=== PATIENT | female | born 1985 | race Caucasian/White ===

== ENCOUNTER 2017-04-06 10:42 | Emergency (ER) | payer MEDICAID ==
[2017-04-06] MEDS ORDERED: IBUPROFEN 600 MG TAB PO ONE ×2 (11:11→11:14)
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
--- NOTE | 2017-04-06 11:22 | CPEKG ---
Heart Rate: 63 RR Interval: 952 P-R Interval: 140 QRSD Interval: 86 QT Interval: 424 QTC Interval: 435 P Liberty: 74 QRS Liberty: 68 T Wave Liberty: 53 EKG Severity - NORMAL ECG - EKG Impression: SINUS RHYTHM Electronically Signed By: James Cervantes 06-Apr-2017 15:50:00
[2017-04-06 11:31] LABS: % IMMATURE GRANULYOCYTES 0.4 % (0.0-1.1); ABSOLUTE IMMATURE GRANULOCYTES 0.05 10^3/uL (0.00-0.10); ADD DIFF? NO; ADD MORPH? NO; ADD SCAN? NO; ATYPICAL LYMPHOCYTE FLAG 10 (0-99); FRAGMENT RBC FLAG 0 (0-99); HEMATOCRIT 39.8 % (38.0-47.0); HEMOGLOBIN 13.4 g/dL (12.6-16.3); LEFT SHIFT FLG 0 (0-99); LIPEMIA HEMOLYSIS FLAG 80 (0-99); MEAN CELL HEMOGLOBIN CONCENTR. 33.7 g/dL (32.4-36.7); MEAN CELL VOLUME 92.1 fL (81.5-99.8); MEAN PLATELET VOLUME 9.5 fL (8.7-11.7); PLATELET CLUMPS FLAG 0 (0-99); PLATELET COUNT 349 10^3/uL (150-400); RED BLOOD CELL COUNT 4.32 10^6/uL (4.18-5.33); RED CELL DISTRIBUTION WIDTH 13.2 % (11.5-15.2)
[2017-04-06 11:43] LABS: ANION GAP 11 mEq/L (8-16); CALCIUM 9.2 mg/dL (8.5-10.4); CARBON DIOXIDE 19 mEq/l (22-31); CHLORIDE 108 mEq/L (97-110); GLOMERULAR FILTRATION RATE > 60; GLUCOSE 91 mg/dL (70-100); POTASSIUM 4.1 mEq/L (3.5-5.2); SODIUM 138 mEq/L (134-144)
[2017-04-06 11:58] LABS: TROPONIN I < 0.012 ng/mL (0-0.034)
[2017-04-06 13:24] VITALS: BP 99/60; PULSE 58; RESP 17; TEMP 98.4; O2SAT 96
== END 2017-04-06 13:23 | disposition home or self-care (01) ==
DX: R07.9 Chest pain, unspecified (principal); F17.200 Nicotine dependence, unspecified, uncomplicated

== ENCOUNTER 2017-04-22 11:33 | Emergency (ER) | payer MEDICAID ==
[2017-04-22 11:43] VITALS: RESP 18
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
[2017-04-22] MEDS ORDERED: IBUPROFEN 600 MG TAB PO ONE ×2 (13:05→13:06)
[2017-04-22] MEDS ORDERED: ACETAMINOPHEN 325 MG TAB PO ONE (13:05)
[2017-04-22] MEDS ORDERED: ACETAMINOPHEN 500 MG TAB ONE (13:06)
[2017-04-22] MEDS ORDERED: ACETAMINOPHEN 160 MG/5 ML UDCUP PO ONE (13:08)
[2017-04-22] MEDS ORDERED: IBUPROFEN SUSP 100 MG/5 ML UDCUP PO ONE (13:09)
[2017-04-22 13:17] VITALS: BP 117/75; PULSE 81; TEMP 97.9; O2SAT 95
== END 2017-04-22 13:16 | disposition home or self-care (01) ==
DX: S29.9XXA Unspecified injury of thorax, initial encounter (principal); F17.200 Nicotine dependence, unspecified, uncomplicated; W01.0XXA Fall on same level from slipping, tripping and stumbling without subsequent striking against object, initial encounter

== ENCOUNTER 2017-08-21 12:06 | Emergency (ER) | payer MEDICAID ==
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
[2017-08-21] MEDS ORDERED: fentaNYL 100 MCG/2 ML INJ IVP ONE (12:18)
[2017-08-21 12:38] VITALS: RESP 16
[2017-08-21] MEDS ORDERED: KETOROLAC 30 MG/1 ML SDV IVP ONE (13:36)
[2017-08-21] MEDS ORDERED: LET GEL TOPICAL 1 EA SYR TP ONE (13:41)
[2017-08-21] MEDS ORDERED: OXYCODONE/APAP 5/325 TAB PO ONE (14:52)
[2017-08-21 15:56] VITALS: BP 98/62; PULSE 67; TEMP 98.6; O2SAT 98
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
--- NOTE | 2017-08-25 11:23 | ASMTCMCOM ---
CM Note CM Note Notes: Received call from Dr. Azevedo office that patient did not show up for scheduled appointment today. I was able to contact patient on her cell phone who tells me she was not able to make it. I encouraged her to call them JOHN to explain/reschedule. Patient tells me she will call and reschedule appointment Date Signed: 08/25/2017 11:22 AM Electronically Signed By:Magdalena Rodney RN
--- NOTE | 2017-08-25 11:23 | ASMTCMCOM ---
CM Note CM Note Notes: Received call from Dr. Azevedo office that patient did not show up for scheduled appointment today. I was able to contact patient on her cell phone who tells me she was not able to make it. I encouraged her to call them JOHN to explain/reschedule. Patient tells me she will call and reschedule appointment Date Signed: 08/25/2017 11:22 AM Electronically Signed By:Magdalena Rodney RN
--- NOTE | 2017-08-25 11:23 | ASMTCMCOM ---
CM Note CM Note Notes: Received call from Dr. Azevedo office that patient did not show up for scheduled appointment today. I was able to contact patient on her cell phone who tells me she was not able to make it. I encouraged her to call them JOHN to explain/reschedule. Patient tells me she will call and reschedule appointment Date Signed: 08/25/2017 11:22 AM Electronically Signed By:Magdalena Rodney RN
== END 2017-08-21 16:11 | disposition home or self-care (01) ==
LOC: EDUNIT#
DX: S82.141A Displaced bicondylar fracture of right tibia, initial encounter for closed fracture (principal); F17.200 Nicotine dependence, unspecified, uncomplicated; V28.0XXA Motorcycle driver injured in noncollision transport accident in nontraffic accident, initial encounter; Y92.410 Unspecified street and highway as the place of occurrence of the external cause; Y99.8 Other external cause status; Y93.89 Activity, other specified
CPT/HCPCS: 96374; J1885; J3010; L1830

== ENCOUNTER 2017-08-27 06:49 | Emergency (ER) | payer MEDICAID ==
[2017-08-27 06:59] VITALS: TEMP 98.6
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
[2017-08-27] MEDS ORDERED: OXYCODONE/APAP 5/325 TAB PO ONE (07:02)
[2017-08-27 10:03] VITALS: BP 104/60; PULSE 72; RESP 12; O2SAT 97
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
--- NOTE | 2017-09-01 12:22 | ASMTCMCOM ---
CM Note CM Note Notes: ER dock manager received call today from Marina SUMNER at Dr. Azevedo's office regarding this patient who is pending orthopedic surgery. Marina askd CM to arrange rehab post surgery as patient is homeless and will likely need HH VS SNF post op. Marina asks CM to contact Dalila FLORENCE at Dr. Azevedo's office re this request . I have reviewed patient's chart and confirmed that she is covered by Medicaid and left a detailed message with Dalila re the process for SNF referrals, etc. I explained that CM would not be able to "pre arrange" SNF or HH care until after patient has surgery and is evaluated for eligibilty and screened via a ULTC. I have left the ER CM contact information for follow up and further questions, as well as contact information for my internet cafe manager, Zuleika . Zuleika has been informed of the situation. Upon confirming my messsage with Dalila I am now informed by Ana at Dr. Azevedo's office that patient is actually scheduled for surgery at [facility]. If contacted, CM will confirm the process and direct Randolph Azevedo's staff to CM at [facility] Date Signed: 09/01/2017 12:22 PM Electronically Signed By:Magdalena Rodney RN
== END 2017-08-27 10:02 | disposition home or self-care (01) ==
LOC: EDUNIT#
DX: M25.561 Pain in right knee (principal)

== ENCOUNTER → 2017-09-01 | Outpatient (CLI) | payer MEDICAID ==
[2017-09-01 12:52] VITALS: BP 115/77; PULSE 77; RESP 18; TEMP 98.4; O2SAT 97
== END ==
LOC: EDSTATUS 13:50 → FIMAGING 13:51
PROVIDERS: ATTEND Orthopaedic Surgery Sports Medicine
DX: S80.11XA Contusion of right lower leg, initial encounter (principal); V00.148A Other scooter (nonmotorized) accident, initial encounter

== ENCOUNTER 2017-09-04 15:34 | Emergency (ER) | payer MEDICAID ==
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
[2017-09-04 16:01] VITALS: RESP 16; TEMP 98.8
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
[2017-09-04 18:21] VITALS: BP 131/81; PULSE 84; O2SAT 94
== END 2017-09-04 18:20 | disposition home or self-care (01) ==
LOC: EDUNIT# → EEVIPCON 15:34
DX: M79.604 Pain in right leg (principal); F17.200 Nicotine dependence, unspecified, uncomplicated

== ENCOUNTER 2017-09-07 07:54 | Inpatient (IN) | payer MEDICAID ==
[~2017-09-07 07:54] MED LIST: ROPIVACAINE 0.2% 80 MG, EPINEPHrine 0.2 MG, KETOROLAC TROMETHAMINE 30 MG, morphINE 10 M... IU ONE; ceFAZolin 2 GM/SWFI 2 GM/20 ML SYR IVP ONE
[2017-09-07] MEDS ORDERED: BUPIVACAINE 0.5% 30 ML SDV ONE ×2 (08:00→10:14)
[2017-09-07] MEDS ORDERED: LR 1,000 ML IV ONE (08:52)
[2017-09-07] MEDS ORDERED: LIDOCAINE 1% 2 ML INJ ID PRN (08:52)
[2017-09-07] MEDS ORDERED: MIDAZOLAM 2 MG/2 ML VIAL IVP ONE (09:40)
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
--- NOTE | 2017-09-07 09:45 | PDHPUP ---
History & Physical Update H&P update statement: This history and physical update is based on an assessment of the patient which was completed after admission or registration (within 24 hours), but prior to the surgery/procedure.
[2017-09-07] MEDS ORDERED: PROPOFOL 200 MG/20 ML VIAL ONE ×2 (09:52)
[2017-09-07] MEDS ORDERED: fentaNYL 100 MCG/2 ML INJ ONE ×4 (09:52→12:24)
[2017-09-07] MEDS ORDERED: MIDAZOLAM 2 MG/2 ML VIAL ONE (09:59)
[2017-09-07] MEDS ORDERED: ceFAZolin 2 GM/SWFI 2 GM/20 ML SYR IVP ONE (10:00)
[2017-09-07] MEDS ORDERED: ONDANSETRON DISINTEGRATING 4 MG TAB PO PRN (12:05)
[2017-09-07] MEDS ORDERED: PROMETHAZINE HCL 25 MG/ML INJ IVP PRN (12:11)
[2017-09-07] MEDS ORDERED: HYDROCODONE/APAP 5/325 TAB PO PRN (12:11)
[2017-09-07] MEDS ORDERED: ACETAMINOPHEN 500 MG TAB PO PRN (12:11)
[2017-09-07] MEDS ORDERED: OXYCODONE/APAP 5/325 TAB PO PRN (12:11)
[2017-09-07] MEDS ORDERED: MEPERIDINE 25 MG/ML SYR IVP PRN (12:11)
[2017-09-07] MEDS ORDERED: NALOXONE HCL 0.4 MG/ML INJ IVP PRN (12:11)
[2017-09-07] MEDS ORDERED: ONDANSETRON 4 MG/2 ML VIAL IVP PRN (12:11)
[2017-09-07] MEDS ORDERED: NS 1,000 ML IV SCH (12:15)
[2017-09-07] MEDS: fentaNYL 100 MCG/2 ML INJ IVP PRN ×3 (12:19→12:38)
[2017-09-07] MEDS ORDERED: HYDROmorphONE/DILAUDID 1 MG/ML INJ ONE (12:25)
[2017-09-07] MEDS: HYDROmorphONE/DILAUDID 1 MG/ML INJ IVP PRN ×2 (12:25→13:08)
--- NOTE | 2017-09-07 12:29 | POSTOPPROG ---
Post Op Note Date of Operation: 09/07/17 Surgeon: Rigoberto Azevedo Pre-op Diagnosis: Right Tibial Austin Fracture Post-op Diagnosis: Right Tibial Austin Fracture Procedure: Arthroscopy assisted ORIF right tibial eminence fracture Inf/Abcess present in the surg proc area at time of surgery?: No Depth: Superfical (Skin SQ) EBL: Minimal
--- NOTE | 2017-09-07 12:41 | GOP ---
[f rep st] OPERATIVE REPORT DATE OF OPERATION: 09/07/2017 SURGEON: Rigoberto Azevedo MD HEARINGS REPORTER: Yudy Rose PA-C. ANESTHESIA: General. PREOPERATIVE DIAGNOSIS: Right knee anterior cruciate ligament avulsion of tibial eminence (tibial em inence fracture). POSTOPERATIVE DIAGNOSIS: Right knee anterior cruciate ligament avulsion of tibial eminence (tibial e minence fracture). PROCEDURE PERFORMED: Arthroscopic-assisted repair of acromioclavicular tibial avulsion fracture of t ibial eminence (tibial plateau). FINDINGS: Patient had elevated fracture of the tibial eminence. This extended across the medial ben nt line more than it did the lateral joint line. The medial meniscus was slightly entrapped on the a nterior horn segment. The medial and lateral menisci were intact. The articular surface was free of degenerative change. Our attention was directed to the medial meniscus. This was reflected above the fracture with a coup le hook probes. The fracture was then temporarily secured with an ACL guide system. Two pins were t hen drilled across the tibial eminence fracture. One was more anterolateral and the other was more p osterior to this on the medial side. The pins were assessed for length. Screw measurements were thu en at 38 and 46 mm, respectively. The proximal cortices were drilled with the 3.5 drill over the can nulated wire. The distal cortices were drilled with a 2.7 drill. The screws were then passed over t he guidewires with care not to allow the pins to go posteriorly. The pins were then extracted. Intr aoperative films were taken. Fluoroscopic pictures were taken. The patient had 30 cc of 0.5% bupiva tayler injected through the arthroscopy cannula and a couple cc into each entry portal. The anterior portals were closed with 4-0 nylon sutures. Sterile compression dressing applied. The patient leticia ated procedure well, was transferred back to recovery in stable condition. There were no operative c omplications. A postop ACL rehab brace was placed on the patient. DESCRIPTION OF PROCEDURE: Patient was taken to the operating room after general anesthesia, placed i n the supine position. The right lower extremity was prepped and draped in normal sterile fashion. The leg was positioned in a leg hussein. The knee was examined. The collateral ligaments were intact . The knee was unstable to anterior drawer and Jermain's. Posterior drawer and posterior sag test w ere normal. The scope was inserted through an anterolateral incision. Superolateral incision was made followed b y insertion of the outflow cannula. Anteromedial incision was made followed by insertion of the hook probe. Systematic exploration joint was performed. COMPLICATIONS: None. /[id number]
[2017-09-07] MEDS: ONDANSETRON 4 MG/2 ML VIAL IVP PRN (14:15)
[2017-09-07] MEDS: OXYCODONE/APAP 5/325 TAB PO PRN ×3 (14:27→23:01)
[2017-09-07] MEDS ORDERED: CEPHALEXIN 500 MG CAP PO SCH (18:00)
[2017-09-07] MEDS: ceFAZolin 2 GM/DEXTROSE 100 ML IV SCH (23:00)
[2017-09-08] MEDS: OXYCODONE/APAP 5/325 TAB PO PRN ×3 (06:27→19:00)
[2017-09-08] MEDS: ceFAZolin 2 GM/DEXTROSE 100 ML IV SCH ×2 (06:28→13:33)
[2017-09-08] MEDS: ASPIRIN 325 MG TAB PO SCH ×2 (07:29→19:53)
[2017-09-08] MEDS: ONDANSETRON 4 MG/2 ML VIAL IVP PRN (07:29)
[2017-09-08] MEDS ORDERED: ASPIRIN 325 MG TAB PO SCH (09:00)
--- NOTE | 2017-09-08 09:22 | SOAPPROG ---
SOAP Progress Note Assessment/Plan: Assessment: POD #1, s/p Right knee ACL avulsion of tibial eminence with arthroscopic assisted repair of tibial avulsion of tibial eminence. Plan: Continue SCD on left leg Continue ERIC on left leg Continue jose eduardo wraps for compression on right leg (ERIC was causing numbness of toes) Ice Elevate leg prn PT/OT Continue pain medications Continue Keflex Aspirin to be started today. TDWB with crutches as able Await information about placement from case management S: Pt. initially had some tingling of the right toes and was very uncomfortable due to the ERIC hose pinching her leg. This did resolve once ERIC was removed. Pt. states that pain has been well managed with meds that she has been given. She did need some IV morphine this AM once her block wore off. Denies fevers, SOB, CP, calf pain, N/V, QUISPE, abdominal pain. O: Pt is alert, resting comfortably, in NAD. Respirations are unlabored, distally pt. has no calf pain or swelling bilaterally. Skin is warm and dry in BLE, pulses brisk and equal in BLE. Incisions are intact, dry with no redness or swelling surrounding, no discharge. Gauze had some bloody drainage and was replaced with clean gauze. Jose Eduardo wraps were applied for compression from the toes to the thigh. Brace was set at 70 and 10 and placed back on pt. 09/08/17 08:59 Objective: Vital Signs Temp Pulse Resp BP Pulse Ox 36.6 C 77 17 103/57 L 100 09/08/17 08:00 09/08/17 08:00 09/08/17 08:00 09/08/17 08:00 09/08/17 08:00 09/07/17 09/08/17 09/09/17 05:59 05:59 05:59 Intake Total 4360 Output Total 2200 Balance 2160 ICD10 Worksheet Patient Problems: Problems Problem Status Onset Fracture of right tibia Acute
[2017-09-08] MEDS: IBUPROFEN 600 MG TAB PO PRN ×2 (13:32→19:53)
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
[2017-09-09] MEDS: OXYCODONE/APAP 5/325 TAB PO PRN ×4 (04:47→21:06)
[2017-09-09] MEDS: ASPIRIN 325 MG TAB PO SCH ×2 (08:13→20:17)
[2017-09-09] MEDS: IBUPROFEN 600 MG TAB PO PRN (08:14)
--- NOTE | 2017-09-09 10:37 | SOAPPROG ---
SOAP Progress Note Assessment/Plan: Assessment: POD #2 Right knee ACL avulsion of tibial eminence with arthroscopic assisted repair of tibial avulsion of tibial eminence. Plan: Continue SCD's/ERIC's on left leg Continue barbara wraps for compression on right leg: ERIC was causing numbness of toes Ice right knee Elevate leg prn PT/OT Continue pain medications prn Continue Aspirin for DVT prophylaxis TDWB with crutches as tolerated Discussed discharge placement with case management. Assessment for placement will likely be done on Thursday 09/13 Ortho Stable Subjective: 31 year old female that is status post right knee ACL avulsion of tibial eminence with arthroscopic assisted repair of tibial avulsion of tibial eminence. Pt states that her pain is better controlled today. Denies fevers, SOB, CP, calf pain, N/V, QUISPE, abdominal pain. Objective: Vital Signs Temp Pulse Resp BP Pulse Ox 36.9 C 51 L 16 96/60 L 97 09/09/17 07:41 09/09/17 07:41 09/09/17 07:41 09/09/17 07:41 09/09/17 07:41 09/08/17 09/09/17 09/10/17 05:59 05:59 05:59 Intake Total 4360 1050 Output Total 2200 Balance 2160 1050 Physical exam of the RLE: Dressings were changed today. Incision is healing well, no erythema, no active drainage. Skin is warm and dry in BLE, pulses brisk and equal in BLE. Normal sensation to light touch in the RLE. Brace was set at 70 and 10 and placed back on pt. ICD10 Worksheet Patient Problems: Problems Problem Status Onset Fracture of right tibia Acute
--- NOTE | 2017-09-10 09:11 | SOAPPROG ---
SOAP Progress Note Assessment/Plan: Assessment: POD #3 Right knee ACL avulsion of tibial eminence with arthroscopic assisted repair of tibial avulsion of tibial eminence. Plan: Continue SCD's/ERIC's on left leg Continue barbara wraps for compression on right leg: ERIC was causing numbness of toes Ice right knee Elevate leg prn PT/OT Continue pain medications prn Continue Aspirin for DVT prophylaxis TDWB with crutches as tolerated Discussed discharge placement with case management. Assessment for placement will likely be done on Thursday 09/13 Ortho Stable Subjective: 31 year old female that is status post right knee ACL avulsion of tibial eminence with arthroscopic assisted repair of tibial avulsion of tibial eminence. Pt states that her knee is still painful but feeling better. She is frustrated that she hasn't been outside in a few days. Otherwise stable. Denies fevers, SOB, CP, calf pain, N/V, QUISPE, abdominal pain. Objective: Vital Signs Temp Pulse Resp BP Pulse Ox 36.8 C 60 12 105/72 99 09/10/17 07:35 09/10/17 07:35 09/10/17 07:35 09/10/17 07:35 09/10/17 07:35 09/09/17 09/10/17 09/11/17 05:59 05:59 05:59 Intake Total 1050 500 Balance 1050 500 Physical exam of the RLE: Dressings clean, dry and intact. Brace fitting well. Skin is warm and dry in BLE, pulses brisk and equal in BLE. Normal sensation to light touch in the RLE. Brace was set at 70 and 10 and placed back on pt. ICD10 Worksheet Patient Problems: Problems Problem Status Onset Fracture of right tibia Acute
[2017-09-10] MEDS: ASPIRIN 325 MG TAB PO SCH ×2 (09:38→21:45)
[2017-09-10] MEDS: OXYCODONE/APAP 5/325 TAB PO PRN ×2 (09:38→14:08)
[2017-09-10] MEDS: IBUPROFEN 600 MG TAB PO PRN (10:29)
[2017-09-10] MEDS ORDERED: MAGNESIUM HYDROXIDE 30 ML UDCUP PO PRN (12:42)
[2017-09-10] MEDS ORDERED: POLYETHYLENE GLYCOL 3350 17 GM PKT PO PRN (12:42)
[2017-09-10] MEDS ORDERED: LACTULOSE 20 GM/30 ML UDCUP PO PRN (12:42)
[2017-09-10] MEDS ORDERED: BISACODYL 10 MG SUPP PR PRN (12:42)
[2017-09-10] MEDS: SENNOSIDES/DOCUSATE SODIUM TAB PO SCH (21:45)
[2017-09-11] MEDS: ASPIRIN 325 MG TAB PO SCH ×2 (09:19→21:14)
[2017-09-11] MEDS: SENNOSIDES/DOCUSATE SODIUM TAB PO SCH ×2 (09:19→21:13)
--- NOTE | 2017-09-11 11:29 | ASMTCMCOM ---
CM Note CM Note Notes: [facility] will likely evaluate pt on Wednesday. So far, [facility] have declined pt. [facility] is interested. [facility] and [facility] have not responded yet. C/M will continue to follow. Date Signed: 09/11/2017 11:28 AM Electronically Signed By:Dolores Gomez LCSW
--- NOTE | 2017-09-11 13:02 | SOAPPROG ---
SOAP Progress Note Assessment/Plan: Assessment: POD #4 Right knee ACL avulsion of tibial eminence with arthroscopic assisted repair of tibial avulsion of tibial eminence. Plan: Continue SCD's/ERIC's on left leg Continue barbara wraps for compression on right leg: ERIC was causing numbness of toes Ice right knee Elevate leg prn PT/OT Continue pain medications prn Continue Aspirin for DVT prophylaxis TDWB with crutches as tolerated Discussed discharge placement with case management. Assessment for placement will likely be done on Thursday 09/13 Ortho Stable Subjective: 31 year old female that is status post right knee ACL avulsion of tibial eminence with arthroscopic assisted repair of tibial avulsion of tibial eminence. Pt states that yesterday when she was going to the bathroom using a walker she did put full weight on her right knee and felt some increased pain. An xray was ordered which Dr. Bustamante looked at as well as myself. The xray was unremarkable for any changes. She states her knee is feeling better today. No new symptoms present. Otherwise stable. Denies fevers, SOB, CP, calf pain, N/V, QUISPE, abdominal pain. Objective: Vital Signs Temp Pulse Resp BP Pulse Ox 36.4 C 53 L 16 99/62 L 95 09/11/17 07:46 09/11/17 12:00 09/11/17 12:00 09/11/17 07:46 09/11/17 12:00 09/10/17 09/11/17 09/12/17 05:59 05:59 05:59 Intake Total 500 1400 Balance 500 1400 Physical exam of the RLE: Dressings clean, dry and intact. Brace fitting well. Skin is warm and dry in BLE, pulses brisk and equal in BLE. Normal sensation to light touch in the RLE. Brace was set at 70 and 10 and placed back on pt. ICD10 Worksheet Patient Problems: Problems Problem Status Onset Fracture of right tibia Acute
[2017-09-12] MEDS: ASPIRIN 325 MG TAB PO SCH ×2 (08:37→21:43)
[2017-09-12] MEDS: SENNOSIDES/DOCUSATE SODIUM TAB PO SCH ×2 (08:37→21:43)
[2017-09-12] MEDS: OXYCODONE/APAP 5/325 TAB PO PRN (13:53)
--- NOTE | 2017-09-12 14:14 | SOAPPROG ---
SOAP Progress Note Assessment/Plan: Assessment: POD #5 Right knee ACL avulsion of tibial eminence with arthroscopic assisted repair of tibial avulsion of tibial eminence. Plan: Continue SCD's/ERIC's on left leg Continue barbara wraps for compression on right leg: ERIC was causing numbness of toes Ice right knee Elevate leg prn PT/OT Continue pain medications prn Continue Aspirin for DVT prophylaxis TDWB with crutches as tolerated Discussed discharge placement with case management. Assessment for placement will likely be done on Thursday 09/13 Ortho Stable Subjective: Pt is 5 days status post right knee ACL avulsion of tibial eminence with arthroscopic assisted repair of tibial avulsion of tibial eminence. She states her knee pain is controlled. Denies fevers, SOB, CP, calf pain, N/V, QUISPE, abdominal pain. Objective: Vital Signs Temp Pulse Resp BP Pulse Ox 37.0 C 60 14 112/62 97 09/12/17 07:40 09/12/17 07:40 09/12/17 07:40 09/12/17 07:40 09/12/17 07:40 09/11/17 09/12/17 09/13/17 05:59 05:59 05:59 Intake Total 1400 600 Balance 1400 600 Physical exam of the RLE: Dressings changed today. Brace fitting well. Skin is warm and dry in BLE, pulses brisk and equal in BLE. Normal sensation to light touch in the RLE. Brace was set at 70 and 10 and placed back on pt. ICD10 Worksheet Patient Problems: Problems Problem Status Onset Fracture of right tibia Acute
[2017-09-12] MEDS: IBUPROFEN 600 MG TAB PO PRN (16:20)
--- NOTE | 2017-09-13 07:53 | SOAPPROG ---
SOAP Progress Note Assessment/Plan: Assessment: POD #6 Right knee ACL avulsion of tibial eminence with arthroscopic assisted repair of tibial avulsion of tibial eminence. Plan: Continue SCD's/ERIC's on left leg Continue barbara wraps for compression on right leg: ERIC was causing numbness of toes Ice right knee Elevate leg prn PT/OT Continue pain medications prn Continue Aspirin 325mg BID for DVT prophylaxis TDWB with crutches as tolerated Discharge placement with case management. Assessment for placement will likely be done today Ortho Stable Subjective: Pt is 6 days status post right knee ACL avulsion of tibial eminence with arthroscopic assisted repair of tibial avulsion of tibial eminence. She states her knee is feeling pretty well. She denies fevers, SOB, CP, calf pain, N/V, QUISPE , abdominal pain. Objective: Vital Signs Temp Pulse Resp BP Pulse Ox 36.8 C 58 L 17 107/66 96 09/13/17 00:00 09/13/17 00:00 09/13/17 00:00 09/13/17 00:00 09/13/17 00:00 09/12/17 09/13/17 09/14/17 05:59 05:59 05:59 Intake Total 600 240 Balance 600 240 Physical exam of the RLE: Dressings clean, dry and intact. Brace fitting well. Skin is warm and dry in BLE, pulses brisk and equal in BLE. Normal sensation to light touch in the RLE. Brace was set at 70 and 10 and placed back on pt. ICD10 Worksheet Patient Problems: Problems Problem Status Onset Fracture of right tibia Acute
[2017-09-13] MEDS: ASPIRIN 325 MG TAB PO SCH ×2 (08:20→20:07)
[2017-09-13] MEDS: SENNOSIDES/DOCUSATE SODIUM TAB PO SCH ×2 (08:20→20:08)
[2017-09-13] MEDS ORDERED: ACETAMINOPHEN 325 MG TAB PO PRN (08:31)
--- NOTE | 2017-09-13 16:49 | ASMTCMCOM ---
CM Note CM Note Notes: Per RN, someone from [facility] was here today to assess patient. I called Robin at [facility] who informed me that her machine package sealer is Nita [phone]. I called and left a message for her. In the meantime, I followed up with some of the SNF's we have referred her to: [facility] denied; [facility] is still reviewing; and, [facility] and [facility] did not return my calls. We will continue to follow up. Date Signed: 09/13/2017 04:48 PM Electronically Signed By:Janny Robb RN
[2017-09-14 08:19] VITALS: BP 107/63; PULSE 66; RESP 16; TEMP 98.4; O2SAT 98
[2017-09-14] MEDS: ASPIRIN 325 MG TAB PO SCH (08:30)
[2017-09-14] MEDS: SENNOSIDES/DOCUSATE SODIUM TAB PO SCH (08:30)
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
== END 2017-09-14 09:22 | disposition left against medical advice (07) | DRG 494 ==
LOC: F3N 07:54
PROVIDERS: ADMIT Orthopaedic Surgery Sports Medicine; ATTEND Orthopaedic Surgery Sports Medicine
PROC: 0QSG04Z Reposition Right Tibia with Internal Fixation Device, Open Approach (ICD-10-PCS; principal; 2017-09-07 10:00)
DX: S82.151A Displaced fracture of right tibial tuberosity, initial encounter for closed fracture (principal); V00.141A Fall from scooter (nonmotorized), initial encounter; Z59.0 Homelessness; Z87.891 Personal history of nicotine dependence
CPT/HCPCS: 97116-GP; 97162-GP; 97165-GO; 97530-GO; 97530-GP; 97535-GO; C1713; C1769; J0171; J0690; J1170; J1885; J2250; J2405; J2704; J2795; J3010

== ENCOUNTER 2018-07-06 15:23 | Emergency (ER) | payer MEDICAID ==
--- NOTE | 2018-07-06 16:52 | EDPHY ---
H & P Stated Complaint: abnl vag bleeding just finished period and restarted Time Seen by Provider: 07/06/18 16:51 HPI/ROS: HPI: This is a 32-year-old female who presents with Chief Complaint: abnl vag bleeding just finished period and restarted Location: Vaginal Quality: Spotting Duration: Today Signs and Symptoms: no fever, no nausea, no vomiting, no hematemesis, no blood in stool, no abdominal bloating, no diarrhea, no back pain, no urinary symptoms , no vaginal discharge, no indigestion, no chest pain, no shortness of breath Timing: Acute Severity: Mild Context: Patient reports that her last menstrual period was June 23 and lasted 5 days per her norm, presents today with onset of vaginal spotting. She reports that she has only used 1 maxi pad the entire day. She denies any abdominal pain, pelvic cramping, vaginal discharge. She has had unprotected sexual intercourse this month. She denies any vaginal trauma. She is eating and drinking without difficulty. She has no urinary symptoms. She has no primary care provider. History of ectopic status post left fallopian tube removal in 2011. Modifying Factors: None Comment: ROS: A comprehensive 10 system review of systems is otherwise negative aside from elements mentioned in the history of present illness. MEDICAL/SURGICAL/SOCIAL HISTORY: Medical history: Generally healthy. Does not take any regular medications. Surgical history: left fallopian tube removal 2011 Social history: Current every day smoker. Family history noncontributory. CONSTITUTIONAL: Well-developed, well-nourished adult white female, awake and alert, no obvious distress HEENT: Atraumatic and normocephalic, PERRL, EOMI. Nares patent; no rhinorrhea; no nasal mucosal edema. Tympanic membranes clear. Oropharynx clear, no exudate and moist pink mucosa. Airway patent. No lymphadenopathy. No meningismus. Cardiovascular: Normal S1/S2, regular rate, regular rhythm, without murmur rub or gallop. PULMONARY/CHEST: Symmetrical and nontender. Clear to auscultation bilaterally. Good air movement. No accessory muscle usage. ABDOMEN: Soft, nondistended, nontender, no rebound, no guarding, no peritoneal signs, no masses or organomegaly. No CVAT. EXTREMITIES: 2/2 pulses, strength 5/5, no deformities, no clubbing, no cyanosis or edema. NEUROLOGICAL: no focal neuro deficits. GCS 15. SKIN: Warm and dry, no erythema. no rash. Good capillary refill. Source: Patient Exam Limitations: No limitations - Personal History LMP (Females 10-55): Now Current Tetanus Diphtheria and Acellular Pertussis (TDAP): Unsure - Medical/Surgical History Hx Asthma: No Hx Chronic Respiratory Disease: No Hx Diabetes: No Hx Cardiac Disease: No Hx Renal Disease: No Hx Cirrhosis: No Hx Alcoholism: No Hx HIV/AIDS: No Hx Splenectomy or Spleen Trauma: No Other PMH: left fallopian tube removal 2011 - Social History Smoking Status: Current every day smoker Constitutional: Initial Vital Signs Temperature (C) 37.1 C 07/06/18 15:36 Heart Rate 67 07/06/18 15:36 Respiratory Rate 16 07/06/18 15:36 Blood Pressure 98/70 L 07/06/18 15:36 O2 Sat (%) 97 07/06/18 15:36 O2 Delivery Mode Room Air Allergies/Adverse Reactions: No Known Allergies Allergy (Verified 07/06/18 15:35) Home Medications: Medication Instructions Recorded NK [No Known Home Meds] 07/06/18 Medical Decision Making - Diagnostics Imaging Results: Imaging Impressions Pelvic/Renal Ultrasound 07/06/18 16:52 Impression: Normal ultrasound pelvis. Findings and recommendations discussed with Emergency Department physician, Jillian Medina at 18:02 hour, 07/06/2018. Final report concurs with initial preliminary interpretation. ED Course/Re-evaluation: Vital signs reviewed and stable. No systemic signs. Urinalysis, laboratory studies, pelvic ultrasound ordered Vaginal bleeding is very scant. Suspect breakthrough bleeding mid cycle. Urinalysis shows 3+ blood, no signs of infection. Blood is most likely due to her menstruating. 1800: Called by radiologist, Dr. Esquivel, He reports that pelvic ultrasound shows no signs of free fluid, no ectopic , no ovarian torsion. With good blood flow to both ovaries. Labs reviewed. No signs of leukocytosis/anemia/platelet dysfunction/BEN/ electrolyte imbalance/. [facility] patient was seen under the supervision of my secondary supervising physician. I evaluated care for this patient independently. Discussed this patient with Dr. Packer. Differential Diagnosis: Vaginal bleeding including but not limited to ectopic , menses, miscarriage, and dysfunctional uterine bleeding. - Data Points Laboratory Results: Laboratory Results 07/06/18 17:00 07/06/18 17:00 07/06/18 07/06/18 07/06/18 17:00 17:00 17:00 WBC 9.20 10^3/uL 10^3/uL (3.80-9.50) RBC 4.40 10^6/uL 10^6/uL (4.18-5.33) Hgb 13.7 g/dL g/dL (12.6-16.3) Hct 39.9 % % (38.0-47.0) MCV 90.7 fL fL (81.5-99.8) MCH 31.1 pg pg (27.9-34.1) MCHC 34.3 g/dL g/dL (32.4-36.7) RDW 13.4 % % (11.5-15.2) Plt Count 363 10^3/uL 10^3/uL (150-400) MPV 9.2 fL fL (8.7-11.7) Neut % (Auto) 62.2 % % (39.3-74.2) Lymph % (Auto) 25.5 % % (15.0-45.0) Greenlee % (Auto) 7.1 % % (4.5-13.0) Eos % (Auto) 4.2 % % (0.6-7.6) Baso % (Auto) 0.8 % % (0.3-1.7) Nucleat RBC Rel Count 0.0 % % (0.0-0.2) Absolute Neuts (auto) 5.72 10^3/uL 10^3/uL (1.70-6.50) Absolute Lymphs (auto) 2.35 10^3/uL 10^3/uL (1.00-3.00) Absolute Monos (auto) 0.65 10^3/uL 10^3/uL (0.30-0.80) Absolute Eos (auto) 0.39 10^3/uL 10^3/uL (0.03-0.40) Absolute Basos (auto) 0.07 10^3/uL 10^3/uL (0.02-0.10) Absolute Nucleated RBC 0.00 10^3/uL 10^3/uL (0-0.01) Immature Gran % 0.2 % % (0.0-1.1) Immature Gran # 0.02 10^3/uL 10^3/uL (0.00-0.10) Sodium 139 mEq/L mEq/L (135-145) Potassium 4.1 mEq/L mEq/L (3.3-5.0) Chloride 106 mEq/L mEq/L (97-110) Carbon Dioxide 23 mEq/l mEq/l (22-31) Anion Gap 10 mEq/L mEq/L (8-16) BUN 16 mg/dL mg/dL (7-23) Creatinine 0.8 mg/dL mg/dL (0.6-1.0) Estimated GFR > 60 Glucose 127 mg/dL H mg/dL (70-100) Calcium 9.5 mg/dL mg/dL (8.5-10.4) Beta HCG, Qual NEGATIVE Urine Color Urine Appearance Urine pH Ur Specific Watkins Urine Protein Urine Ketones Urine Blood Urine Nitrate Urine Bilirubin Urine Urobilinogen Ur Leukocyte Esterase Urine RBC Urine WBC Ur Epithelial Cells Urine Mucus Urine Glucose Urine Test 07/06/18 07/06/18 15:39 15:39 WBC RBC Hgb Hct MCV MCH MCHC RDW Plt Count MPV Neut % (Auto) Lymph % (Auto) Greenlee % (Auto) Eos % (Auto) Baso % (Auto) Nucleat RBC Rel Count Absolute Neuts (auto) Absolute Lymphs (auto) Absolute Monos (auto) Absolute Eos (auto) Absolute Basos (auto) Absolute Nucleated RBC Immature Gran % Immature Gran # Sodium Potassium Chloride Carbon Dioxide Anion Gap BUN Creatinine Estimated GFR Glucose Calcium Beta HCG, Qual Urine Color YELLOW Urine Appearance HAZY Urine pH 5.0 (5.0-7.5) Ur Specific Watkins 1.017 (1.002-1.030) Urine Protein NEGATIVE (NEGATIVE) Urine Ketones NEGATIVE (NEGATIVE) Urine Blood 3+ H (NEGATIVE) Urine Nitrate NEGATIVE (NEGATIVE) Urine Bilirubin NEGATIVE (NEGATIVE) Urine Urobilinogen 2.0 EU H EU (0.2-1.0) Ur Leukocyte Esterase NEGATIVE (NEGATIVE) Urine RBC 1-3 /hpf /hpf (0-3) Urine WBC 1-3 /hpf /hpf (0-3) Ur Epithelial Cells TRACE /lpf /lpf (NONE-1+) Urine Mucus TRACE /lpf /lpf (NONE-1+) Urine Glucose NEGATIVE (NEGATIVE) Urine Test NEGATIVE Departure - Departure Disposition: Home, Routine, Self-Care Clinical Impression: Spotting between menses Condition: Good Instructions: Dysmenorrhea (ED) Additional Instructions: Consume a minimum of 8-10 glasses of water or electrolyte fluid replacement drinks that include Gatorade, Powerade, Pedialyte. Please use protection during sexual intercourse to prevent . [facility]. [facility]errals: [facility] [Clinic] - As per Instructions
[2018-07-06 17:12] LABS: PLATELET COUNT 363 10^3/uL (150-400)
[2018-07-06 18:11] VITALS: BP 125/80
== END 2018-07-06 18:10 | disposition home or self-care (01) ==
LOC: EDUNIT#
DX: N93.9 Abnormal uterine and vaginal bleeding, unspecified (principal); F17.200 Nicotine dependence, unspecified, uncomplicated

== ENCOUNTER 2018-07-15 23:04 | Emergency (ER) | payer MEDICAID ==
[2018-07-15 23:48] LABS: PLATELET COUNT 321 10^3/uL (150-400)
[2018-07-16] MEDS ORDERED: IOPAMIDOL (ISOVUE 370) 100 ML BTL IV ONE (00:17)
[2018-07-16] MEDS ORDERED: KETOROLAC 15 MG/1 ML SDV IVP ONE (00:47)
--- NOTE | 2018-07-16 00:48 | EDPHY ---
H & P Stated Complaint: CP hurts with a deep breath Time Seen by Provider: 07/15/18 23:22 HPI/ROS: Chief complaint: Left-sided chest pain History of present illness: This is a 32-year-old female who presents to the emergency department for evaluation of left-sided chest pain. She reports the onset of symptoms over the last few hours. She describes a sharp pain. It radiates up and down the left side of her body. It is worse with taking a deep breath. She denies precipitating factors. She denies alleviating factors. She denies other associated signs or symptoms including no fevers, no cold symptoms including no cough, no dyspnea, no hemoptysis, no pain or swelling in the legs, no abdominal pain, no nausea or vomiting. Review of systems: A 10 point review of systems was obtained and other than described above was negative - Personal History LMP (Females 10-55): 15-21 Days Ago Current Tetanus/Diphtheria Vaccine: No Current Tetanus Diphtheria and Acellular Pertussis (TDAP): No - Medical/Surgical History Hx Asthma: No Hx Chronic Respiratory Disease: No Hx Diabetes: No Hx Cardiac Disease: No Hx Renal Disease: No Hx Cirrhosis: No Hx Alcoholism: No Hx HIV/AIDS: No Hx Splenectomy or Spleen Trauma: No Other PMH: left fallopian tube removal 2011 - Social History Smoking Status: Current every day smoker - Physical Exam Exam: General Appearance: Alert, nontoxic. Eyes: Pupils equal and round no pallor or injection. ENT, Mouth: Mucous membranes moist. Respiratory: The patient is speaking in full sentences. There are no retractions, lungs are clear to auscultation. Cardiovascular: Regular rate and rhythm. Gastrointestinal: Abdomen is soft and non tender, no masses, bowel sounds normal. Neurological: Alert and oriented x4. Strength and sensation intact and symmetrical. Skin: Warm and dry, no rashes. Musculoskeletal: Neck is supple non tender. Mild discomfort over the left lateral chest wall without crepitus or subcutaneous air. Extremities are symmetrical, full range of motion. Psychiatric: Patient is oriented X 3, there is no agitation. Constitutional: Initial Vital Signs Temperature (C) 36.7 C 07/15/18 23:05 Heart Rate 89 07/15/18 23:05 Respiratory Rate 16 07/15/18 23:05 Blood Pressure 140/79 H 07/15/18 23:05 O2 Sat (%) 96 07/15/18 23:05 O2 Delivery Mode Room Air Allergies/Adverse Reactions: No Known Allergies Allergy (Verified 07/15/18 23:09) Home Medications: Medication Instructions Recorded NK [No Known Home Meds] 07/06/18 Medical Decision Making - Diagnostics Imaging Results: Imaging Impressions Chest X-Ray 07/15/18 23:28 Impression: 1. Mild bronchitis. 2. No definite focal pneumonia. Imaging: Discussed imaging studies w/ score caller Radiologist ED Course/Re-evaluation: Patient is discussed with my secondary supervising physician Dr. Giuseppe Oliva. Patient presents for left-sided sharp chest wall pain. She is nontoxic. Physical exam is largely unremarkable. Her workup is also largely unremarkable, she does have a positive D-dimer but CTA is negative. My suspicion for serious underlying pathology is low. However I have discussed it is not clear as to the exact cause of her symptoms. I do believe she is stable for discharge home. I have asked her to follow up with a primary care doctor and provided referral information. Home care is discussed. Strict return precautions were discussed. She voiced understanding and agreement with plan. Differential Diagnosis: Included but not limited to skin conditions including shingles, musculoskeletal pain, pneumothorax, hemothorax, pulmonary infections, pulmonary embolism, cardiac dysrhythmia, ACS - Data Points Laboratory Results: Laboratory Results 07/15/18 23:38 07/15/18 23:38 Medications Given: Discontinued Medications Ketorolac Tromethamine (Toradol) 15 mg IVP EDNOW ONE Stop: 07/16/18 00:48 Last Admin: 07/16/18 01:06 Dose: Not Given Point of Care Test Results: Chemistry 07/15/18 23:42 POC Troponin I 0.00 ng/mL ng/mL (0.00-0.08) Departure - Departure Disposition: Home, Routine, Self-Care Clinical Impression: Chest pain Qualifiers: Chest pain type: unspecified Qualified Code(s): R07.9 - Chest pain, unspecified Condition: Good Instructions: Chest Pain (ED) Additional Instructions: Follow-up with a primary care doctor next week for continued evaluation and care You can use ibuprofen 600 mg 3 times a day for the next 2-3 days for pain control If symptoms worsen or new symptoms develop return to the emergency department for recheck Referrals: NONE *PRIMARY CARE P,. [Primary Care Provider] - As per Instructions [facility],. [Clinic] - As per Instructions
[2018-07-16 01:01] VITALS: BP 100/52
--- NOTE | 2018-07-18 15:21 | CPEKG ---
Test Reason : OPEN Blood Pressure : / mmHG Vent. Rate : 071 BPM Atrial Rate : 070 BPM P-R Int : 141 ms QRS Dur : 086 ms QT Int : 405 ms P-R-T Axes : 054 060 038 degrees QTc Int : 441 ms Sinus rhythm Borderline Q waves in inferior leads Confirmed by Brittney Graves ([id number]) on 07/18/2018 3:20:43 PM Referred By: Confirmed By:Brittney Graves
== END 2018-07-16 01:00 | disposition home or self-care (01) ==
DX: R07.9 Chest pain, unspecified (principal)
CPT/HCPCS: 84484-PO; 96374; Q9967

== ENCOUNTER 2018-07-26 12:19 | Emergency (ER) | payer MEDICAID ==
[2018-07-26] MEDS ORDERED: IBUPROFEN 600 MG TAB PO ONE (13:32)
[2018-07-26] MEDS ORDERED: KETAMINE 200 MG/20 ML VIAL IVP ONE (13:56)
--- NOTE | 2018-07-26 13:59 | EDPHY ---
H & P Stated Complaint: R 5th toe injury, vaginal bleeding Time Seen by Provider: 07/26/18 13:52 HPI/ROS: CHIEF COMPLAINT: Stubbed toe, vaginal bleeding and foul-smelling discharge HISTORY OF PRESENT ILLNESS: The patient is a 32-year-old homeless female who comes to the emergency department complaining of stubbing her toe last night. She states that she thinks it is dislocated because it is painful and swollen. She is able to ambulate but with a limp. She denies other injuries. She does however complain of vaginal bleeding. She states that this is her 3rd menses this month. She states that her discharges foul-smelling but is blood. She denies yellow or greenish or other type discharge. She has been monogamous with her boyfriend for over a year. She also complains of cramping. She has not taken any medications. No nausea vomiting. No upper abdominal pain. No urinary symptoms. Severity: Moderate Modifying factors: None REVIEW OF SYSTEMS: Constitutional: denies: chills, fever, recent illness, recent injury EENTM: denies: blurred vision, double vision, nose congestion Respiratory: denies: cough, shortness of breath Cardiac: denies: chest pain, irregular heart rate, lightheadedness, palpitations Gastrointestinal/Abdominal: denies: abdominal pain, diarrhea, nausea, vomiting, blood streaked stools Genitourinary: See HPI denies: dysuria, frequency, hematuria, pain Musculoskeletal: denies: joint pain, muscle pain Skin: denies: lesions, rash, jaundice, bruising Neurological: denies: headache, numbness, paresthesia, tingling, dizziness, weakness Hematologic/Lymphatic: denies: blood clots, easy bleeding, easy bruising Immunologic/allergic: denies: HIV/AIDS, transplant 10 systems reviewed and negative except as noted EXAM: GENERAL: Well-appearing, well-nourished and in no acute distress. HEAD: Atraumatic, normocephalic. EYES: Pupils equal round and reactive to light, extraocular movements intact, sclera anicteric, conjunctiva are normal. ENT: TMs normal, nares patent, oropharynx clear without exudates. Moist mucous membranes. NECK: Normal range of motion, supple without lymphadenopathy or JVD. LUNGS: Breath sounds clear to auscultation bilaterally and equal. No wheezes rales or rhonchi. HEART: Regular rate and rhythm without murmurs, rubs or gallops. ABDOMEN: Soft, nontender, normoactive bowel sounds. No guarding, no rebound. No masses appreciated. BACK: No CVA tenderness, no spinal tenderness, step-offs or deformities EXTREMITIES: Normal range of motion, no pitting or edema. No clubbing or cyanosis. NEUROLOGICAL: Cranial nerves II through XII grossly intact. Normal speech, normal gait. 5/5 strength, normal movement in all extremities, normal sensation , normal reflexes PSYCH: Normal mood, normal affect. SKIN: Warm, dry, normal turgor, no visible rashes or lesions. Source: Patient Exam Limitations: No limitations - Personal History LMP (Females 10-55): Now Current Tetanus/Diphtheria Vaccine: No Current Tetanus Diphtheria and Acellular Pertussis (TDAP): No - Medical/Surgical History Hx Asthma: No Hx Chronic Respiratory Disease: No Hx Diabetes: No Hx Cardiac Disease: No Hx Renal Disease: No Hx Cirrhosis: No Hx Alcoholism: No Hx HIV/AIDS: No Hx Splenectomy or Spleen Trauma: No Other PMH: left fallopian tube removal 2012, R ACL repair, PTSD - Social History Smoking Status: Current every day smoker Constitutional: Initial Vital Signs Temperature (C) 36.9 C 07/26/18 12:24 Heart Rate 66 07/26/18 12:24 Respiratory Rate 16 07/26/18 12:24 Blood Pressure 118/67 07/26/18 12:24 O2 Sat (%) 95 07/26/18 12:24 O2 Delivery Mode Room Air Allergies/Adverse Reactions: No Known Allergies Allergy (Verified 07/26/18 12:24) Home Medications: Medication Instructions Recorded NK [No Known Home Meds] 07/06/18 Medical Decision Making - Diagnostics Imaging Results: Imaging Impressions Toe X-Ray 07/26/18 12:50 Impression: Fracture subluxation of the fifth PIP joint. Pelvic/Renal Ultrasound 07/26/18 13:56 Impression: 1. Right ovarian 1.8 cm simple cyst or dominant follicle. 2. No ovarian torsion or significant free fluid in the pelvis. Findings and recommendations discussed with Emergency Department physician, RONN GAFFNEY at 14:58 hour, 07/26/2018. Final report concurs with initial preliminary interpretation. Imaging: Discussed imaging studies w/ town justice Radiologist Procedures: Orthopedic reduction: The patient's toe was anesthetized with 0.5% bupivacaine digital block was then straightened manually and placed in a nanette splint. Patient tolerated the procedure well. ED Course/Re-evaluation: I will reduce the patient's toe. I injected her with a digital block. She is currently receiving ultrasound. Patient tolerated orthopedic reduction well. Patient pelvic exam was reassuring. Small amount of blood but no cervical motion tenderness or adnexal fullness. No unusual discharge or foul smell. She is reassured. We discussed the ovarian cyst. I will have her follow up with OBGYN. Also have her follow up with Podiatry. I will not start her on antibiotics at this time. Differential Diagnosis: Partial list of the Differential diagnosis considered include but were not limited to; ovarian cyst, dysfunctional uterine bleeding, STD and although unlikely based on the history and physical exam, I also considered urinary tract infection appendicitis, hernia. I discussed these differential diagnoses and the plan with the patient as well as the usual and expected course. The patient understands that the diagnosis is provisional and that in medicine we are not always correct and that further workup is often warranted. Usual and customary warnings were given. All of the patient's questions were answered. The patient was instructed to return to the emergency department should the symptoms at all worsen or return, otherwise to followup with the physician as we discussed. - Data Points Laboratory Results: Laboratory Results 07/26/18 14:05 07/26/18 14:05 07/26/18 07/26/18 07/26/18 15:05 14:05 14:05 WBC 9.46 10^3/uL 10^3/uL (3.80-9.50) RBC 4.34 10^6/uL 10^6/uL (4.18-5.33) Hgb 13.3 g/dL g/dL (12.6-16.3) Hct 39.1 % % (38.0-47.0) MCV 90.1 fL fL (81.5-99.8) MCH 30.6 pg pg (27.9-34.1) MCHC 34.0 g/dL g/dL (32.4-36.7) RDW 13.9 % % (11.5-15.2) Plt Count 358 10^3/uL 10^3/uL (150-400) MPV 9.3 fL fL (8.7-11.7) Neut % (Auto) 72.5 % % (39.3-74.2) Lymph % (Auto) 17.2 % % (15.0-45.0) Whitfield % (Auto) 6.4 % % (4.5-13.0) Eos % (Auto) 3.1 % % (0.6-7.6) Baso % (Auto) 0.5 % % (0.3-1.7) Nucleat RBC Rel Count 0.0 % % (0.0-0.2) Absolute Neuts (auto) 6.85 10^3/uL H 10^3/uL (1.70-6.50) Absolute Lymphs (auto) 1.63 10^3/uL 10^3/uL (1.00-3.00) Absolute Monos (auto) 0.61 10^3/uL 10^3/uL (0.30-0.80) Absolute Eos (auto) 0.29 10^3/uL 10^3/uL (0.03-0.40) Absolute Basos (auto) 0.05 10^3/uL 10^3/uL (0.02-0.10) Absolute Nucleated RBC 0.00 10^3/uL 10^3/uL (0-0.01) Immature Gran % 0.3 % % (0.0-1.1) Immature Gran # 0.03 10^3/uL 10^3/uL (0.00-0.10) Sodium 140 mEq/L mEq/L (135-145) Potassium 3.9 mEq/L mEq/L (3.3-5.0) Chloride 106 mEq/L mEq/L (97-110) Carbon Dioxide 23 mEq/l mEq/l (22-31) Anion Gap 11 mEq/L mEq/L (8-16) BUN 10 mg/dL mg/dL (7-23) Creatinine 0.7 mg/dL mg/dL (0.6-1.0) Estimated GFR > 60 Glucose 129 mg/dL H mg/dL (70-100) Calcium 9.6 mg/dL mg/dL (8.5-10.4) Beta HCG, Quant < 2.39 mIU/mL mIU/mL (0.00-4.83) Urine Color Urine Appearance Urine pH Ur Specific [place] Urine Protein Urine Ketones Urine Blood Urine Nitrate Urine Bilirubin Urine Urobilinogen Ur Leukocyte Esterase Urine RBC Urine WBC Ur Epithelial Cells Urine Bacteria Hyaline Casts Urine Mucus Urine Glucose Jovanna species DNA Pending C.trachomatis RNA (TMA) Gardnerella DNA Probe Pending N.gonorrhoeae RNA (TMA) Trichomonas DNA Probe Pending 07/26/18 07/26/18 13:10 13:10 WBC RBC Hgb Hct MCV MCH MCHC RDW Plt Count MPV Neut % (Auto) Lymph % (Auto) Whitfield % (Auto) Eos % (Auto) Baso % (Auto) Nucleat RBC Rel Count Absolute Neuts (auto) Absolute Lymphs (auto) Absolute Monos (auto) Absolute Eos (auto) Absolute Basos (auto) Absolute Nucleated RBC Immature Gran % Immature Gran # Sodium Potassium Chloride Carbon Dioxide Anion Gap BUN Creatinine Estimated GFR Glucose Calcium Beta HCG, Quant Urine Color YELLOW Urine Appearance HAZY Urine pH 5.0 (5.0-7.5) Ur Specific [place] 1.017 (1.002-1.030) Urine Protein NEGATIVE (NEGATIVE) Urine Ketones TRACE H (NEGATIVE) Urine Blood 3+ H (NEGATIVE) Urine Nitrate NEGATIVE (NEGATIVE) Urine Bilirubin NEGATIVE (NEGATIVE) Urine Urobilinogen 2.0 EU H EU (0.2-1.0) Ur Leukocyte Esterase NEGATIVE (NEGATIVE) Urine RBC 1-3 /hpf /hpf (0-3) Urine WBC 5-10 /hpf H /hpf (0-3) Ur Epithelial Cells 1+ /lpf /lpf (NONE-1+) Urine Bacteria TRACE /hpf H /hpf (NONE SEEN) Hyaline Casts 1-5 /lpf /lpf (0-1) Urine Mucus 2+ /lpf H /lpf (NONE-1+) Urine Glucose NEGATIVE (NEGATIVE) Jovanna species DNA C.trachomatis RNA (TMA) Pending Gardnerella DNA Probe N.gonorrhoeae RNA (TMA) Pending Trichomonas DNA Probe Medications Given: Discontinued Medications Ibuprofen (Motrin) 600 mg PO EDNOW ONE Stop: 07/26/18 13:33 Last Admin: 07/26/18 13:35 Dose: 600 mg Ketamine HCl (Ketamine) 20 mg IVP EDNOW ONE Stop: 07/26/18 13:57 Last Admin: 07/26/18 14:19 Dose: 20 mg Point of Care Test Results: Urine HCG Results Negative Departure - Departure Disposition: Home, Routine, Self-Care Clinical Impression: Right ovarian cyst, Dysfunctional uterine bleeding Fracture of fifth toe, right, closed Qualifiers: Encounter type: initial encounter Qualified Code(s): S92.501A - Displaced unspecified fracture of right lesser toe(s), initial encounter for closed fracture Condition: Fair Instructions: Dysfunctional Uterine Bleeding (ED), Ovarian Cyst (ED), Toe Fracture (ED) Additional Instructions: Keep your toe nanette-taped the next 6 weeks follow-up with podiatry Referrals: NONE *PRIMARY CARE P,. [Primary Care Provider] - As per Instructions James Carl DPM [Doctor of Podiatric Medicine] - 5-7 days, call for appt. Erica Bee MD [Medical Doctor] - 5-7 days, call for appt.
[2018-07-26 14:30] LABS: PLATELET COUNT 358 10^3/uL (150-400)
[2018-07-26 15:31] VITALS: BP 96/60
[2018-07-27 10:43] LABS: GC AMPLIFICATION GENPROBE NEGATIVE (NEGATIVE)
--- NOTE | 2018-07-28 12:11 | ASMTCMCOM ---
CM Note CM Note Notes: Requested by Milagro, ED CTL, to assist with contacting patient re:her test results from her ED visit on 07/26/18. Pt tested positive for bacterial vaginosis and the ED provider recommended that if pt was still experiencing symptoms, she should be given a prescription of 500mg Flagyl three times a day, for seven days. If pt is no longer experiencing symptoms, then no treatment is needed. Milagro had tried calling the pt's listed # and this CM did too but it automatically goes to a message stating"this call cannot be completed because there are restrictions on this line." Called [facility] and they state pt has not been seen there since 2016. Requested that their Homeless Outreach RN, Malu, keep an eye out for the patient at the [facility] and/or [facility]. Spoke w/[facility] staff and they state patient did not sign a release of information so it is unclear whether she has completed Coordinated Entry and been referred to the [facility] or [facility]. CM available for further assistance if needed. Date Signed: 07/28/2018 12:11 PM Electronically Signed By:Mariza Collier RN
== END 2018-07-26 15:31 | disposition home or self-care (01) ==
PROC: 0SSPXZZ Reposition Right Toe Phalangeal Joint, External Approach (ICD-10-PCS; principal; 2018-07-26)
DX: S92.501A Displaced unspecified fracture of right lesser toe(s), initial encounter for closed fracture (principal); N93.9 Abnormal uterine and vaginal bleeding, unspecified; N83.201 Unspecified ovarian cyst, right side; F17.200 Nicotine dependence, unspecified, uncomplicated; Z59.0 Homelessness; W22.8XXA Striking against or struck by other objects, initial encounter; Y92.9 Unspecified place or not applicable; Y93.9 Activity, unspecified; Y99.9 Unspecified external cause status
CPT/HCPCS: 96374

== ENCOUNTER 2018-11-14 18:07 | Emergency (ER) | payer MEDICAID ==
[2018-11-14] MEDS ORDERED: IPRATROPIUM/ALBUTEROL 3 ML DEYVIAL IH ONE (18:22)
--- NOTE | 2018-11-14 18:26 | EDPHY ---
H & P Time Seen by Provider: 11/14/18 18:18 HPI/ROS: CHIEF COMPLAINT: Cough times several weeks HISTORY OF PRESENT ILLNESS: 32-year-old homeless female, daily tobacco use, complaining of 3 weeks of nonproductive cough. She feels a "burning sensation" whenever she is smoking a cigarette. No chest pain. No dyspnea. No sore throat. No palpitations. No headache. No fever or chills. No otalgia. PRIMARY CARE PROVIDER: [facility] REVIEW OF SYSTEMS: 10 systems reviewed and negative with the exception of the elements mentioned in the history of present illness PAST MEDICAL & SURGICAL HISTORY: No history of reactive airways disease or chronic respiratory disease SOCIAL HISTORY: 1/2 pack per day tobacco. Homeless. PHYSICAL EXAM (Prior to examination, patient consented to physical exam, hands were washed and my usual and customary physical exam procedures followed) 1) GENERAL: Well-developed, well-nourished, alert and oriented. Appears to be in no acute distress. 2) HEAD: Normocephalic, atraumatic 3) HEENT: Pupils equal, round, reactive to light bilaterally. Sclera anicteric. Nasopharynx, oropharynx, clear, no lesions. Moist Mucous membranes. No tonsillar enlargement or exudate. Ears bilaterally with normal tympanic membranes. No evidence of otitis media otitis externa 4) NECK: Full range of motion, no meningeal signs. 5) LUNGS: Mild bilateral end-expiratory wheeze no rhonchi, no retractions. No accessory muscle use 6) HEART: Regular rate and rhythm, no murmur, no heave, no gallop. 7) ABDOMEN: No guarding, no rebound, no focal tenderness, negative McBurney's, negative Roca's, negative Rovsing's, negative peritoneal sign, 8) MUSCULOSKELETAL: Moving all extremities, no focal areas of tenderness, no obvious trauma. No peripheral edema or discoloration. 9) BACK: No CVA tenderness, no midline vertebral tenderness, no fluctuance, no step-off, no obvious trauma, no visual or palpable abnormality. 10) SKIN: No rash, no petechiae. 11) Psychiatric: Patient is oriented X 3, there is no agitation. DIFFERENTIAL DIAGNOSIS: In no particular order including but not limited to pneumonia, bronchitis, viral URI Smoking Status: Current every day smoker Constitutional: Initial Vital Signs Temperature (C) 36.9 C 11/14/18 18:12 Heart Rate 78 11/14/18 18:12 Respiratory Rate 18 11/14/18 18:12 Blood Pressure 101/74 11/14/18 18:12 O2 Sat (%) 97 11/14/18 18:12 O2 Delivery Mode Room Air Allergies/Adverse Reactions: No Known Allergies Allergy (Verified 11/14/18 18:12) Home Medications: Medication Instructions Recorded Albuterol [Proventil Inhaler HFA 1 - 2 puffs IH Q4PRN PRN #1 mdi 11/14/18 (*)] Azithromycin [Zithromax] 500 mg PO DAILY #1 tablet 11/14/18 MDM/Departure - MDM Imaging Results: Imaging Impressions Chest X-Ray 11/14/18 18:18 Impression: Central peribronchial thickening suggesting bronchitis/airways disease without evidence of pneumonia. Images reviewed myself Medications Given: Discontinued Medications Albuterol/Ipratropium (Duoneb) 3 ml IH EDNOW ONE Stop: 11/14/18 18:23 Last Admin: 11/14/18 18:36 Dose: 3 ml ED Course/Re-evaluation: 6:24 p.m.: Patient request DuoNeb treatment. Will obtain x-ray as well. Patient feeling improvement after DuoNeb treatment. She is resting comfortably , lungs are clear bilaterally. Plan will be discharged with my usual and customary respiratory precautions and instructions, albuterol meter dose inhaler , azithromycin. She feels comfortable being discharged. Care of patient under supervision of secondary supervising physician Dr Norman Gusman. - Depart Disposition: Home, Routine, Self-Care Clinical Impression: Acute bronchitis Qualifiers: Bronchitis organism: unspecified organism Qualified Code(s): J20.9 - Acute bronchitis, unspecified Condition: Good Instructions: Acute Bronchitis (ED) Additional Instructions: Return to the emergency department immediately for change in breathing habits, change in voice, change in swallowing habits, change in mental status, or any other symptoms that concern you. Please consider stopping smoking. Prescriptions: Albuterol [Proventil Inhaler HFA (*)] 1 - 2 puffs IH Q4PRN PRN #1 mdi PRN Reason: Cough, Moderate Azithromycin [Zithromax] 500 mg PO DAILY #1 tablet Referrals: Yoli Guevara, RESISTOR INSPECTOR [Primary Care Provider] - 2-3 days, call for appt.
[2018-11-14 18:51] VITALS: BP 136/62
== END 2018-11-14 18:52 | disposition home or self-care (01) ==
DX: J20.9 Acute bronchitis, unspecified (principal)